=== PATIENT | female | born 1990 | race Caucasian/White ===

== ENCOUNTER 2017-01-15 04:05 | Inpatient (IN) | payer BC ==
[2017-01-15] MEDS ORDERED: Sodium Chloride 0.9% 2.5 ML Syringe FLUSH PRN ×3 (04:08→19:02)
[2017-01-15] MEDS ORDERED: Sodium Chloride 0.9% 10 ML Syringe FLUSH PRN ×3 (04:08→19:02)
[2017-01-15] MEDS ORDERED: Promethazine 25 MG/ML SDV IM ONE (04:12)
[2017-01-15] MEDS ORDERED: Butorphanol 1 MG/ML SDV IVPUSH ONE (04:13)
[2017-01-15] MEDS ORDERED: Water For Irrigation,Sterile 1,000 ML Container IRR PRN (04:32)
[2017-01-15] MEDS ORDERED: Butorphanol 1 MG/ML SDV IVPUSH PRN (04:32)
[2017-01-15] MEDS ORDERED: Lidocaine 1% 50 ML MDV INJECT PRN (04:32)
[2017-01-15] MEDS ORDERED: Nalbuphine 10 MG/1 ML Vial IVPUSH PRN ×2 (04:32→20:03)
[2017-01-15] MEDS ORDERED: Methylergonovine 0.2 MG/1 ML Amp IM PRN (04:32)
[2017-01-15] MEDS ORDERED: Misoprostol 200 MCG Tab PO PRN (04:32)
[2017-01-15] MEDS ORDERED: Carboprost Tromethamine 250 MCG/1 ML Amp IM PRN (04:32)
[2017-01-15] MEDS ORDERED: Ampicillin 2 GM in Sodium Chloride 0.9% 100 ML IV ONE (04:37)
[2017-01-15] MEDS: Lactated Ringers 1,000 ML IV SCH ×3 (04:38→06:36)
[2017-01-15] MEDS ORDERED: Lactated Ringers 1,000 ML IV SCH ×3 (04:45→20:00)
[2017-01-15] MEDS ORDERED: Oxytocin/Lactated Ringers 30 UNIT/500 ML BAG IV SCH (04:45)
--- NOTE | 2017-01-15 05:17 | PCM.PREANE ---
Preanesthetic Assessment - Anesthesia/Transfusion/Family Hx Anesthesia History: No Prior Anesthesia - Review of Systems General: No Symptoms Pulmonary: No Symptoms Cardiovascular: No Symptoms Gastrointestinal: No Symptoms Neurological: No Symptoms Other: Reports: None - Physical Assessment Height: 5 ft Weight: 72.575 kg ASA Class: 2 Mental Status: Alert & Oriented x3 Airway Class: Mallampati = 2 Dentition: Reports: Normal Dentition Thyro-Mental Finger Breadths: 3 Mouth Opening Finger Breadths: 3 ROM/Head Extension: Full Lungs: Clear to Auscultation, Normal Respiratory Effort Cardiovascular: Regular Rate, Regular Rhythm - Lab Values: Laboratory Last Values WBC 12.43 K/uL (4.0-11.0) H 01/15/17 04:35 RBC 4.29 M/uL (4.30-5.90) L 01/15/17 04:35 Hgb 14.3 g/dL (12.0-16.0) 01/15/17 04:35 Hct 40.4 % (36.0-46.0) 01/15/17 04:35 MCV 94.2 fL (80.0-98.0) 01/15/17 04:35 MCH 33.3 pg (27.0-32.0) H 01/15/17 04:35 MCHC 35.4 g/dL (31.0-37.0) 01/15/17 04:35 RDW Std Deviation 45.3 fl (28.0-62.0) 01/15/17 04:35 RDW Coeff of Jude 13 % (11.0-15.0) 01/15/17 04:35 Plt Count 197 K/uL (150-400) 01/15/17 04:35 MPV 11.00 fL (7.40-12.00) 01/15/17 04:35 Nucleated RBC % 0.0 /100WBC 01/15/17 04:35 Nucleated RBCs # 0 K/uL 01/15/17 04:35 - Allergies Allergies/Adverse Reactions: Allergies Allergy/AdvReac Type Severity Reaction Status Date / Time shellfish derived Allergy Itching Verified 01/14/17 20:39 - Acknowledgements Anesthesia Type Planned: Epidural Pt an Appropriate Candidate for the Planned Anesthesia: Yes Alternatives and Risks of Anesthesia Discussed w Pt/Guardian: Yes Pt/Guardian Understands and Agrees with Anesthesia Plan: Yes PreAnesthesia Questionnaire HEENT History: Reports: None Cardiovascular History: Reports: None Respiratory History: Reports: None Gastrointestinal History: Reports: GERD Genitourinary History: Reports: None CULINARY DIRECTOR History: Reports: : 2 Para: 1 LMP (Approximate): Musculoskeletal History: Reports: None Neurological History: Reports: None Psychiatric History: Reports: Anxiety, Depression Endocrine/Metabolic History: Reports: Obesity/BMI 30+ Hematologic History: Reports: None Immunologic History: Reports: None Oncologic (Cancer) History: Reports: None Dermatologic History: Reports: None - Infectious Disease History Infectious Disease History: Reports: None - Past Surgical History HEENT Surgical History: Reports: Other (See Below) Other HEENT Surgeries/Procedures: WISDOM TEETH - Past Imaging History Past Imaging History: Reports: None - CURRENT (IN HOUSE) MEDS Current Meds: Current Medications Butorphanol Tartrate (Stadol) 1 mg IVPUSH Q1H PRN PRN Reason: Pain Carboprost Tromethamine (Hemabate Ds) 250 mcg IM ASDIRECTED PRN PRN Reason: Post Hemorrhage Lactated Ringer's (Ringers, Lactated) 1,000 mls @ 125 mls/hr IV ASDIRECTED [facility] Last Admin: 01/15/17 04:38 Dose: 125 mls/hr Lactated Ringer's (Ringers, Lactated) 1,000 mls @ 150 mls/hr IV ASDIRECTED [facility] Oxytocin/Lactated Ringer's (Pitocin In Lr 30 Units/500 Ml) 30 unit in 500 mls @ 999 mls/hr IV TITRATE [facility] Stop: 01/15/17 05:16 Ampicillin Sodium 1 gm/ Sodium (Chloride) 50 mls @ 100 mls/hr IV Q4HR [facility] Lidocaine HCl (Xylocaine 1%) 50 ml INJECT .ONCE PRN PRN Reason: Laceration repair Methylergonovine Maleate (Methergine) 0.2 mg IM ASDIRECTED PRN PRN Reason: Post Hemorrhage Misoprostol (Cytotec) 200 mcg PO .ONCE PRN PRN Reason: Post Hemorrhage Nalbuphine HCl (Nubain) 10 mg IVPUSH Q1H PRN PRN Reason: Pain (severe 7-10) Stop: 01/15/17 06:33 Sodium Chloride (Saline Flush) 10 ml FLUSH ASDIRECTED PRN PRN Reason: Keep Vein Open Sodium Chloride (Saline Flush) 2.5 ml FLUSH ASDIRECTED PRN PRN Reason: Keep Vein Open Sodium Chloride (Saline Flush) 10 ml FLUSH ASDIRECTED PRN PRN Reason: Keep Vein Open Sodium Chloride (Saline Flush) 2.5 ml FLUSH ASDIRECTED PRN PRN Reason: Keep Vein Open Sterile Water (Sterile Water For Irrigation) 1,000 ml IRR ASDIRECTED PRN PRN Reason: delivery Discontinued Medications Butorphanol Tartrate (Stadol) 1 mg IVPUSH ONETIME ONE Stop: 01/15/17 04:14 Last Admin: 01/15/17 04:47 Dose: 1 mg Ampicillin Sodium 2 gm/ Sodium (Chloride) 100 mls @ 200 mls/hr IV ONETIME ONE Stop: 01/15/17 05:06 Last Admin: 01/15/17 05:11 Dose: 200 mls/hr Promethazine HCl (Phenergan) 12.5 mg IM ONETIME ONE Stop: 01/15/17 04:13
[2017-01-15] MEDS ORDERED: fentaNYL 100 MCG/2 ML SDV ONE ×2 (05:19→18:53)
[2017-01-15] MEDS ORDERED: Ropivacaine HCl/PF 100 ML ONE ×2 (05:19→15:38)
[2017-01-15] MEDS ORDERED: ePHEDrine 50 MG/ML SDV ONE (05:56)
[2017-01-15] MEDS: Ampicillin 1 GM in Sodium Chloride 0.9% 50 ML IV SCH ×3 (09:05→17:02)
[2017-01-15] MEDS ORDERED: Bupivacaine 0.25% 10 ML SDV ONE ×2 (16:59→18:36)
[2017-01-15] MEDS ORDERED: Acetaminophen 500 MG Tab PO ONE (18:24)
[2017-01-15] MEDS ORDERED: Bupivacaine 0.5% 10 ML SDV ONE (18:53)
[2017-01-15] MEDS ORDERED: Midazolam 1 MG/ML 2 ML SDV ONE (19:13)
[2017-01-15] MEDS ORDERED: Propofol 200 MG/20 ML SDV ONE (19:13)
[2017-01-15] MEDS ORDERED: Citric Acid/Sodium Citrate Solution 30 ML Cup PO SCH (19:15)
[2017-01-15] MEDS ORDERED: Oxytocin 10 Units/1 ML SDV ONE (19:20)
[2017-01-15] MEDS ORDERED: Morphine PF 10 MG/10 ML SDV ONE (19:31)
[2017-01-15] MEDS ORDERED: Octyl 2-Cyanoacrylate 1 Tube ONE (19:48)
[2017-01-15] MEDS ORDERED: diphenhydrAMINE 50 MG/ML SDV IVPUSH PRN (19:54)
[2017-01-15] MEDS ORDERED: Bisacodyl 10 MG Supp RECTAL PRN (19:54)
[2017-01-15] MEDS ORDERED: Acetaminophen/oxyCODONE 325-5 MG Tab PO PRN ×2 (19:54→20:02)
[2017-01-15] MEDS ORDERED: Lanolin 100% Cream 7 GM Tube TOP PRN (19:54)
[2017-01-15] MEDS ORDERED: Ondansetron 4 MG/2 ML SDV IV PRN (19:54)
[2017-01-15] MEDS ORDERED: Ibuprofen 800 MG Tab PO PRN (19:54)
[2017-01-15] MEDS ORDERED: Naloxone 0.4 MG/ML Syringe IVPUSH PRN (20:03)
--- NOTE | 2017-01-15 20:03 | PCM.OPNOTE ---
- General Post-Op/Procedure Note Date of Surgery/Procedure: 01/15/17 Operative Procedure(s): Primary LTCS Findings: term female APGARs 8, 9 weigh 3410 gm. Intact placenta with 3 V cord. Normal appearing pelvis. Pre Op Diagnosis: 40 week IUP. Arrest of descent Post-Op Diagnosis: Same Anesthesia Technique: Epidural Primary Surgeon: Anuradha Romero Fluid Replacement, Intraop: 1,000 EBL in mLs: 500 Complications: none known Condition: Good Free Text/Narrative:: Dictation [id number]
--- NOTE | 2017-01-15 20:32 | PCM.POSTAN ---
POST ANESTHESIA ASSESSMENT - MENTAL STATUS Mental Status: Alert, Oriented - RESPIRATORY Respiratory Status: Respiratory Rate WNL, Airway Patent, O2 Saturation Stable - CARDIOVASCULAR CV Status: Pulse Rate WNL, Blood Pressure Stable, Other (alternates between NSR and bigeminy with no symptoms) - GASTROINTESTINAL GI Status: No Symptoms - PAIN Pain Score: 3 ("tolerable") - POST OP HYDRATION Hydration Status: Adequate & Stable - OBSERVATIONS Free Text/Narrative:: Pt stable. She does jump in and out of bigeminy on her EKG, but asymptomatic and returns to NSR. VSS. No nausea and pt states that her pain is tolerable at this time.
[2017-01-15] MEDS ORDERED: Ketorolac 30 MG/ML SDV ONE (20:58)
[2017-01-15] MEDS: Ketorolac 30 MG/ML SDV IVPUSH SCH (21:03)
[2017-01-15] MEDS: Docusate Sodium 100 MG Cap PO SCH (21:03)
--- NOTE | 2017-01-15 23:38 | OR ---
SURGEON: Anuradha Romero M.D. DATE OF PROCEDURE: 01/15/2017 PREOPERATIVE DIAGNOSES: 1. 40 weeks intrauterine . 2. Arrest of descent. POSTOPERATIVE DIAGNOSES: 1. 40 weeks intrauterine . 2. Arrest of descent. PROCEDURE: Primary low transverse section. ESTIMATED BLOOD LOSS: 500 mL. ANESTHESIA: Epidural. FLUIDS: 1000 mL of crystalloid. COMPLICATIONS: None. FINDINGS: Term female, score 8 at 1 minute, 9 at 5 minute. Weight of 3410 g. Intact placenta, three vessel cord, normal appearing pelvis. DISPOSITION: Infant to nursery, mom to PACU, stable. INDICATIONS: Kym is a 26-year-old, primigravida at 40 weeks' gestational age, presented in active labor. She was admitted and routine labs were drawn. IV hydration was initiated. She is group B beta strep positive, therefore, underwent ampicillin prophylaxis, after receiving two doses of this had amniotomy, clear fluid was returned. She progressed to complete and began pushing efforts once at a +1 station. With pushing efforts, she was able to push to a +2 station with approximately 3 hours of pushing, but thereafter was not able to make further progress. I offered operative vaginal delivery, the patient adamantly declines this and would prefer to proceed with . Therefore, risks of the procedure have been discussed with her and proper consent obtained. DESCRIPTION OF PROCEDURE: The patient was taken to the operating room where she underwent re-dosing of her epidural, was then prepped and draped in usual sterile fashion. SCDs lower extremities. Angulo had already been placed to gravity. Received Ancef prophylactically. She was prepped and draped in usual sterile fashion. Time-out was performed. Anesthesia was found to be adequate. Nurse had been placed to the side of the patient in order to allow it for a vaginal hand during delivery of the head. Pfannenstiel skin incision was now created, carried down to the level of the rectus fascia, which was incised in midline, lateralized on either side sharply and bluntly. The superior aspect of the fascia was tented upward, dissected sharply and bluntly away from underlying muscle. Inferior aspect of the fascia was also dissected. Rectus muscle was in midline and peritoneum was entered. Inferior aspect of the peritoneum was entered. Rectus muscles and peritoneum were then lateralized bluntly. Self-retaining retractor was now gently placed. Uterovesical reflection was visualized. Bladder flap was created sharply and bluntly. The bladder was mobilized away from lower uterine segment. Low transverse hysterotomy was now performed. Uterine cavity was entered with blunt end of the scalpel. Hysterotomy was now lateralized bluntly. The infant's head was flexed and delivered with the help of the nurse using vaginal hand. Once the head was delivered from the pelvis, fundal pressure was applied and head was delivered followed by anterior shoulder, posterior shoulder, and remaining body without difficulty. The 's oropharynx and nares bulb suctioned. Cord clamped x2 and cut. Infant was handed off to attending staff, Dr. Galvin. Cord arterial, cord venous, and cord blood sampling were obtained. The placenta was now delivered. Uterine cavity was cleared of all clot and debris. Hysterotomy was repaired using 0 Vicryl in a continuous running locked fashion, followed by a re-imbricating layer. The posterior aspect of the uterus inspected, no defects hematoma found to be forming. The region was well irrigated and suction dried. Colonic gutters were cleared of all clot and debris, well irrigated and suction dried. The hysterotomy was once again inspected, 2 areas of serosal oozing were cauterized, thereafter, hemostasis was evident. Self-retaining retractor was now removed. Bladder blade was placed. Hysterotomy was inspected and found to be hemostatic. The rectus muscles were now reapproximated using 0 Vicryl with inverted mattress suture technique. Anterior aspect of the muscle, posterior aspect of the fascia closely inspected. Any areas of oozing were cauterized. The rectus fascia was reapproximated using 0 Vicryl in continuous running fashion beginning laterally on either side meeting the midline in continuous fashion. Subcutaneous tissue was well irrigated and suction dried. Any area of oozing was cauterized. The skin edges were reapproximated using 3-0 Vicryl in a Eliseo needle in subcuticular fashion followed by Dermabond. Sponge, instrument, needle counts were correct x2. The uterus remained firm. Hemostasis evident. The patient will go to PACU in stable condition. to nursery. TAMMY / BRENT /[id number]
--- NOTE | 2017-01-16 02:48 | PCM48HPAN ---
Post Anesthesia Note - EVALUATION WITHIN 48HRS OF ANESTHETIC Vital Signs in Normal Range: Yes Patient Participated in Evaluation: Yes Respiratory Function Stable: Yes Airway Patent: Yes Cardiovascular Function Stable: Yes Hydration Status Stable: Yes Pain Control Satisfactory: Yes Nausea and Vomiting Control Satisfactory: Yes Mental Status Recovered: Yes
[2017-01-16] MEDS: Ketorolac 30 MG/ML SDV IVPUSH SCH ×4 (04:51→22:17)
[2017-01-16] MEDS: Docusate Sodium 100 MG Cap PO SCH ×2 (09:30→20:11)
[2017-01-16] MEDS: Lactated Ringers 1,000 ML IV SCH (09:30)
--- NOTE | 2017-01-16 10:55 | PCM.PNPP ---
- General Info Date of Service: 01/16/17 Admission Dx/Problem (Free Text): Term , post-op Subjective Update: Patient doing well. Pain controlled. Will be up to walk this morning. Eating well. . Functional Status: Reports: Pain Controlled - Review of Systems General: Reports: No Symptoms HEENT: Reports: No Symptoms Pulmonary: Reports: No Symptoms Cardiovascular: Reports: No Symptoms Gastrointestinal: Reports: No Symptoms Genitourinary: Reports: No Symptoms Musculoskeletal: Reports: No Symptoms Skin: Reports: No Symptoms Neurological: Reports: No Symptoms Psychiatric: Reports: No Symptoms - General Info Date of Service: 01/16/17 - Patient Data Vital Signs - Most Recent: Last Vital Signs Temp 36.8 C 01/16/17 08:00 Pulse 86 01/16/17 08:00 Resp 16 01/16/17 10:00 BP 107/64 01/16/17 08:00 Pulse Ox 95 01/16/17 10:00 Weight - Most Recent: 72.575 kg I&O - Last 24 Hours: Intake & Output 01/15/17 01/16/17 01/16/17 22:59 06:59 14:59 Intake Total 3000 Output Total 210 Balance 2790 Lab Results - Last 24 Hours: Laboratory Results - last 24 hr 01/16/17 Range/Units 05:51 Hgb 10.6 L (12.0-16.0) g/dL Hct 31.1 L (36.0-46.0) % Med Orders - Current: Current Medications Bisacodyl (Dulcolax) 10 mg RECTAL .ONCE PRN PRN Reason: Constipation Carboprost Tromethamine (Hemabate Ds) 250 mcg IM ASDIRECTED PRN PRN Reason: Post Hemorrhage Citric Acid/Sodium Citrate (Bicitra Solution) 30 ml PO .ONCE [facility] Diphenhydramine HCl (Benadryl) 25 mg IVPUSH Q6H PRN PRN Reason: Itching or Nausea Docusate Sodium (Colace) 100 mg PO BID [facility] [place] Last Admin: 01/16/17 09:30 Dose: 100 mg Emollient Ointment (Lansinoh Hpa) 0 gm TOP ASDIRECTED PRN PRN Reason: Sore Nipples Lactated Ringer's (Ringers, Lactated) 1,000 mls @ 125 mls/hr IV ASDIRECTED [facility] Last Admin: 01/16/17 09:30 Dose: 125 mls/hr Lactated Ringer's (Ringers, Lactated) 1,000 mls @ 150 mls/hr IV ASDIRECTED [facility] [place] Last Admin: 01/15/17 13:10 Dose: 150 mls/hr Lactated Ringer's (Ringers, Lactated) 1,000 mls @ 500 mls/hr IV .BOLUS [facility] [place] Lactated Ringer's (Ringers, Lactated) 1,000 mls @ 125 mls/hr IV ASDIRECTED [facility] [place] Ibuprofen (Motrin) 800 mg PO Q8H PRN PRN Reason: mild pain or fever Ketorolac Tromethamine (Toradol) 30 mg IVPUSH Q6H [facility] [place] Stop: 01/16/17 21:01 Last Admin: 01/16/17 10:38 Dose: 30 mg Methylergonovine Maleate (Methergine) 0.2 mg IM ASDIRECTED PRN PRN Reason: Post Hemorrhage Nalbuphine HCl (Nubain) 2.5 mg IVPUSH Q3H PRN PRN Reason: Pruritis Stop: 01/16/17 20:04 Naloxone HCl (Narcan) 0.1 mg IVPUSH ONETIME PRN PRN Reason: RR<6 WITH STIMULATION Stop: 01/16/17 20:04 Ondansetron HCl (Zofran) 4 mg IV Q4H PRN PRN Reason: Nausea/Vomiting Oxycodone/Acetaminophen (Percocet 325-5 Mg) 1 tab PO Q4H PRN PRN Reason: Pain (moderate 4-6) Oxycodone/Acetaminophen (Percocet 325-5 Mg) 2 tab PO Q4H PRN PRN Reason: Pain (moderate 4-6) Oxycodone/Acetaminophen (Percocet 325-5 Mg) 1 tab PO .Q4HRS PRN PRN Reason: Breakthrough Pain Stop: 01/16/17 20:00 Sodium Chloride (Saline Flush) 2.5 ml FLUSH ASDIRECTED PRN PRN Reason: Keep Vein Open Sodium Chloride (Saline Flush) 2.5 ml FLUSH ASDIRECTED PRN PRN Reason: Keep Vein Open Sodium Chloride (Saline Flush) 10 ml FLUSH ASDIRECTED PRN PRN Reason: Keep Vein Open Sodium Chloride (Saline Flush) 2.5 ml FLUSH ASDIRECTED PRN PRN Reason: Keep Vein Open Discontinued Medications Acetaminophen (Tylenol Extra Strength) 1,000 mg PO ONETIME ONE Stop: 01/15/17 18:25 Bupivacaine HCl (Sensorcaine-Mpf 0.25%) Confirm Administered Dose 10 ml .ROUTE .STK-MED ONE Stop: 01/15/17 17:00 Bupivacaine HCl (Sensorcaine-Mpf 0.25%) Confirm Administered Dose 10 ml .ROUTE .STK-MED ONE Stop: 01/15/17 18:37 Bupivacaine HCl (Sensorcaine-Mpf 0.5%) Confirm Administered Dose 20 ml .ROUTE .STK-MED ONE Stop: 01/15/17 18:54 Butorphanol Tartrate (Stadol) 1 mg IVPUSH ONETIME ONE Stop: 01/15/17 04:14 Last Admin: 01/15/17 04:47 Dose: 1 mg Butorphanol Tartrate (Stadol) 1 mg IVPUSH Q1H PRN PRN Reason: Pain Ephedrine Sulfate (Ephedrine Sulfate) Confirm Administered Dose 50 mg .ROUTE .STK-MED ONE Stop: 01/15/17 05:57 Fentanyl (Sublimaze) Confirm Administered Dose 100 mcg .ROUTE .STK-MED ONE Stop: 01/15/17 05:20 Fentanyl (Sublimaze) Confirm Administered Dose 100 mcg .ROUTE .STK-MED ONE Stop: 01/15/17 18:54 Oxytocin/Lactated Ringer's (Pitocin In Lr 30 Units/500 Ml) 30 unit in 500 mls @ 999 mls/hr IV TITRATE [facility] [place] Stop: 01/15/17 05:16 Ampicillin Sodium 2 gm/ Sodium (Chloride) 100 mls @ 200 mls/hr IV ONETIME ONE Stop: 01/15/17 05:06 Last Admin: 01/15/17 05:11 Dose: 200 mls/hr Ampicillin Sodium 1 gm/ Sodium (Chloride) 50 mls @ 100 mls/hr IV Q4HR [facility] [place] Last Admin: 01/15/17 17:02 Dose: 100 mls/hr Ropivacaine (Naropin 0.2%) Confirm Administered Dose 100 mls @ as directed .ROUTE .STK-MED ONE Stop: 01/15/17 05:20 Ropivacaine (Naropin 0.2%) Confirm Administered Dose 100 mls @ as directed .ROUTE .STK-MED ONE Stop: 01/15/17 15:39 Cefazolin Sodium/Dextrose (Ancef) Confirm Administered Dose 50 mls @ as directed .ROUTE .STK-MED ONE Stop: 01/15/17 18:59 Ibuprofen (Motrin) 800 mg PO Q8H PRN PRN Reason: mild pain or fever Ketorolac Tromethamine (Toradol) Confirm Administered Dose 30 mg .ROUTE .STK- MED ONE Stop: 01/15/17 20:59 Lidocaine HCl (Xylocaine 1%) 50 ml INJECT .ONCE PRN PRN Reason: Laceration repair Midazolam HCl (Versed 1 Mg/Ml) Confirm Administered Dose 2 mg .ROUTE .STK-MED ONE Stop: 01/15/17 19:14 Misoprostol (Cytotec) 200 mcg PO .ONCE PRN PRN Reason: Post Hemorrhage Morphine Sulfate (Duramorph Pf) Confirm Administered Dose 10 mg .ROUTE .STK-MED ONE Stop: 01/15/17 19:32 Nalbuphine HCl (Nubain) 10 mg IVPUSH Q1H PRN PRN Reason: Pain (severe 7-10) Stop: 01/15/17 06:33 Octyl Cyanoacrylate (Dermabond Advance) Confirm Administered Dose 1 applic .ROUTE .STK-MED ONE Stop: 01/15/17 19:49 Oxytocin (Pitocin) Confirm Administered Dose 30 unit .ROUTE .STK-MED ONE Stop: 01/15/17 19:21 Promethazine HCl (Phenergan) 12.5 mg IM ONETIME ONE Stop: 01/15/17 04:13 Propofol (Diprivan 20 Ml) Confirm Administered Dose 200 mg .ROUTE .STK-MED ONE Stop: 01/15/17 19:14 Sodium Chloride (Saline Flush) 10 ml FLUSH ASDIRECTED PRN PRN Reason: Keep Vein Open Sodium Chloride (Saline Flush) 10 ml FLUSH ASDIRECTED PRN PRN Reason: Keep Vein Open Sterile Water (Sterile Water For Irrigation) 1,000 ml IRR ASDIRECTED PRN PRN Reason: delivery - Interaction Infant Disposition, : in Room with Family Infant Interaction: Holding Infant Feeding: Breastfed Infant; Nursed Well Support Person: - Recovery Exam Fundal Tone: Firm Fundal Level: At Umbilicus Fundal Placement: Midline Lochia Amount: Scant Lochia Color: Rubra/Red Perineum Description: Edematous Urinary Elimination: Indwelling Catheter - Exam General: Alert, Oriented Lungs: Clear to Auscultation, Normal Respiratory Effort Cardiovascular: Regular Rate, Regular Rhythm GI/Abdominal Exam: Normal Bowel Sounds, Soft, Non-Tender (Appropriately tender) Extremities: Normal Inspection, Normal Range of Motion, Non-Tender, No Pedal Edema, Normal Capillary Refill Skin: Warm, Dry, Intact Wound/Incisions: Healing Well Neurological: No New Focal Deficit Psy/Mental Status: Alert, Normal Affect, Normal Mood - Problem List & Annotations (1) Arrest of descent, delivered, current hospitalization SNOMED Code(s): 90466202 Code(s): O62.1 - SECONDARY UTERINE INERTIA Status: Acute Current Visit: Yes (2) delivery delivered SNOMED Code(s): 748749064 Code(s): O82 - ENCOUNTER FOR DELIVERY WITHOUT INDICATION Status: Acute Current Visit: Yes - Problem List Review Problem List Initiated/Reviewed/Updated: Yes - Assessment Assessment:: POD#1 after primary low transverse . Stable, tolerating diet, pain well controlled. Working on . Will be up to walk shortly. - Plan Plan:: Will work on walking. Start PO pain medications this evening. Continue care.
[2017-01-17] MEDS ORDERED: Ibuprofen 800 MG Tab PO PRN (03:00)
[2017-01-17] MEDS: Acetaminophen/oxyCODONE 325-5 MG Tab PO PRN ×2 (03:55→08:31)
[2017-01-17] MEDS: Docusate Sodium 100 MG Cap PO SCH (08:35)
[2017-01-17 10:20] VITALS: BP 117/72
--- NOTE | 2017-01-17 10:57 | PCM.PNPP ---
- General Info Date of Service: 01/17/17 Functional Status: Reports: Pain Controlled, Tolerating Diet, Ambulating, Urinating - Review of Systems General: Reports: No Symptoms HEENT: Reports: No Symptoms Pulmonary: Reports: No Symptoms Cardiovascular: Reports: No Symptoms Gastrointestinal: Reports: No Symptoms Genitourinary: Reports: No Symptoms Musculoskeletal: Reports: No Symptoms Skin: Reports: No Symptoms Neurological: Reports: No Symptoms Psychiatric: Reports: No Symptoms - General Info Date of Service: 01/17/17 - Patient Data Vital Signs - Most Recent: Last Vital Signs Temp 37.0 C 01/17/17 10:08 Pulse 95 01/17/17 10:08 Resp 16 01/17/17 10:08 BP 117/72 01/17/17 10:08 Pulse Ox 97 01/17/17 10:08 Weight - Most Recent: 72.575 kg I&O - Last 24 Hours: Intake & Output 01/16/17 01/17/17 01/17/17 22:59 06:59 14:59 Output Total 2100 Balance -2100 Med Orders - Current: Current Medications Bisacodyl (Dulcolax) 10 mg RECTAL .ONCE PRN PRN Reason: Constipation Carboprost Tromethamine (Hemabate Ds) 250 mcg IM ASDIRECTED PRN PRN Reason: Post Hemorrhage Citric Acid/Sodium Citrate (Bicitra Solution) 30 ml PO .ONCE CHAY Diphenhydramine HCl (Benadryl) 25 mg IVPUSH Q6H PRN PRN Reason: Itching or Nausea Docusate Sodium (Colace) 100 mg PO BID [facility] Last Admin: 01/17/17 08:35 Dose: 100 mg Emollient Ointment (Lansinoh Hpa) 0 gm TOP ASDIRECTED PRN PRN Reason: Sore Nipples Lactated Ringer's (Ringers, Lactated) 1,000 mls @ 125 mls/hr IV ASDIRECTED [facility] Last Admin: 01/16/17 09:30 Dose: 125 mls/hr Lactated Ringer's (Ringers, Lactated) 1,000 mls @ 150 mls/hr IV ASDIRECTED [facility] Last Admin: 01/15/17 13:10 Dose: 150 mls/hr Lactated Ringer's (Ringers, Lactated) 1,000 mls @ 500 mls/hr IV .BOLUS CHAY Lactated Ringer's (Ringers, Lactated) 1,000 mls @ 125 mls/hr IV ASDIRECTED CHAY Ibuprofen (Motrin) 800 mg PO Q8H PRN PRN Reason: mild pain or fever Methylergonovine Maleate (Methergine) 0.2 mg IM ASDIRECTED PRN PRN Reason: Post Hemorrhage Ondansetron HCl (Zofran) 4 mg IV Q4H PRN PRN Reason: Nausea/Vomiting Oxycodone/Acetaminophen (Percocet 325-5 Mg) 1 tab PO Q4H PRN PRN Reason: Pain (moderate 4-6) Oxycodone/Acetaminophen (Percocet 325-5 Mg) 2 tab PO Q4H PRN PRN Reason: Pain (moderate 4-6) Last Admin: 01/17/17 08:31 Dose: 2 tab Sodium Chloride (Saline Flush) 2.5 ml FLUSH ASDIRECTED PRN PRN Reason: Keep Vein Open Sodium Chloride (Saline Flush) 2.5 ml FLUSH ASDIRECTED PRN PRN Reason: Keep Vein Open Sodium Chloride (Saline Flush) 10 ml FLUSH ASDIRECTED PRN PRN Reason: Keep Vein Open Sodium Chloride (Saline Flush) 2.5 ml FLUSH ASDIRECTED PRN PRN Reason: Keep Vein Open Discontinued Medications Acetaminophen (Tylenol Extra Strength) 1,000 mg PO ONETIME ONE Stop: 01/15/17 18:25 Bupivacaine HCl (Sensorcaine-Mpf 0.25%) Confirm Administered Dose 10 ml .ROUTE .STK-MED ONE Stop: 01/15/17 17:00 Bupivacaine HCl (Sensorcaine-Mpf 0.25%) Confirm Administered Dose 10 ml .ROUTE .STK-MED ONE Stop: 01/15/17 18:37 Bupivacaine HCl (Sensorcaine-Mpf 0.5%) Confirm Administered Dose 20 ml .ROUTE .STK-MED ONE Stop: 01/15/17 18:54 Butorphanol Tartrate (Stadol) 1 mg IVPUSH ONETIME ONE Stop: 01/15/17 04:14 Last Admin: 01/15/17 04:47 Dose: 1 mg Butorphanol Tartrate (Stadol) 1 mg IVPUSH Q1H PRN PRN Reason: Pain Ephedrine Sulfate (Ephedrine Sulfate) Confirm Administered Dose 50 mg .ROUTE .STK-MED ONE Stop: 01/15/17 05:57 Fentanyl (Sublimaze) Confirm Administered Dose 100 mcg .ROUTE .STK-MED ONE Stop: 01/15/17 05:20 Fentanyl (Sublimaze) Confirm Administered Dose 100 mcg .ROUTE .STK-MED ONE Stop: 01/15/17 18:54 Oxytocin/Lactated Ringer's (Pitocin In Lr 30 Units/500 Ml) 30 unit in 500 mls @ 999 mls/hr IV TITRATE [facility] Stop: 01/15/17 05:16 Ampicillin Sodium 2 gm/ Sodium (Chloride) 100 mls @ 200 mls/hr IV ONETIME ONE Stop: 01/15/17 05:06 Last Admin: 01/15/17 05:11 Dose: 200 mls/hr Ampicillin Sodium 1 gm/ Sodium (Chloride) 50 mls @ 100 mls/hr IV Q4HR [facility] Last Admin: 01/15/17 17:02 Dose: 100 mls/hr Ropivacaine (Naropin 0.2%) Confirm Administered Dose 100 mls @ as directed .ROUTE .STK-MED ONE Stop: 01/15/17 05:20 Ropivacaine (Naropin 0.2%) Confirm Administered Dose 100 mls @ as directed .ROUTE .STK-MED ONE Stop: 01/15/17 15:39 Cefazolin Sodium/Dextrose (Ancef) Confirm Administered Dose 50 mls @ as directed .ROUTE .STK-MED ONE Stop: 01/15/17 18:59 Ibuprofen (Motrin) 800 mg PO Q8H PRN PRN Reason: mild pain or fever Ketorolac Tromethamine (Toradol) 30 mg IVPUSH Q6H [facility] Stop: 01/16/17 21:01 Last Admin: 01/16/17 22:17 Dose: 30 mg Ketorolac Tromethamine (Toradol) Confirm Administered Dose 30 mg .ROUTE .STK- MED ONE Stop: 01/15/17 20:59 Lidocaine HCl (Xylocaine 1%) 50 ml INJECT .ONCE PRN PRN Reason: Laceration repair Midazolam HCl (Versed 1 Mg/Ml) Confirm Administered Dose 2 mg .ROUTE .STK-MED ONE Stop: 01/15/17 19:14 Misoprostol (Cytotec) 200 mcg PO .ONCE PRN PRN Reason: Post Hemorrhage Morphine Sulfate (Duramorph Pf) Confirm Administered Dose 10 mg .ROUTE .STK-MED ONE Stop: 01/15/17 19:32 Nalbuphine HCl (Nubain) 10 mg IVPUSH Q1H PRN PRN Reason: Pain (severe 7-10) Stop: 01/15/17 06:33 Nalbuphine HCl (Nubain) 2.5 mg IVPUSH Q3H PRN PRN Reason: Pruritis Stop: 01/16/17 20:04 Naloxone HCl (Narcan) 0.1 mg IVPUSH ONETIME PRN PRN Reason: RR<6 WITH STIMULATION Stop: 01/16/17 20:04 Octyl Cyanoacrylate (Dermabond Advance) Confirm Administered Dose 1 applic .ROUTE .STK-MED ONE Stop: 01/15/17 19:49 Oxycodone/Acetaminophen (Percocet 325-5 Mg) 1 tab PO .Q4HRS PRN PRN Reason: Breakthrough Pain Stop: 01/16/17 20:00 Oxytocin (Pitocin) Confirm Administered Dose 30 unit .ROUTE .STK-MED ONE Stop: 01/15/17 19:21 Promethazine HCl (Phenergan) 12.5 mg IM ONETIME ONE Stop: 01/15/17 04:13 Propofol (Diprivan 20 Ml) Confirm Administered Dose 200 mg .ROUTE .STK-MED ONE Stop: 01/15/17 19:14 Sodium Chloride (Saline Flush) 10 ml FLUSH ASDIRECTED PRN PRN Reason: Keep Vein Open Sodium Chloride (Saline Flush) 10 ml FLUSH ASDIRECTED PRN PRN Reason: Keep Vein Open Sterile Water (Sterile Water For Irrigation) 1,000 ml IRR ASDIRECTED PRN PRN Reason: delivery - Infant Interaction Disposition, : [place] in Room with Family Infant Interaction: Holding Infant Infant Feeding: Breastfed ; Nursed Well Support Person: - Recovery Exam Fundal Tone: Firm Fundal Level: At Umbilicus Fundal Placement: Midline Lochia Amount: Small Lochia Color: Rubra/Red Perineum Description: Intact, Minimal Bruising/Swelling Episiotomy/Laceration: None Bladder Status: Voiding Urinary Elimination: Voided - Exam General: Alert, Oriented HEENT: Pupils Equal Neck: Supple Lungs: Clear to Auscultation, Normal Respiratory Effort Cardiovascular: Regular Rate, Regular Rhythm GI/Abdominal Exam: Normal Bowel Sounds, Soft, Non-Tender, No Organomegaly Extremities: Normal Inspection, Normal Range of Motion, Non-Tender. No: No Pedal Edema (1+ equal bilaterally.) Skin: Warm, Dry, Intact Neurological: No New Focal Deficit Psy/Mental Status: Alert, Normal Affect, Normal Mood - Problem List & Annotations (1) Arrest of descent, delivered, current hospitalization SNOMED Code(s): 58650671 Code(s): O62.1 - SECONDARY UTERINE INERTIA Status: Acute Current Visit: Yes (2) delivery delivered SNOMED Code(s): 890837262 Code(s): O82 - ENCOUNTER FOR DELIVERY WITHOUT INDICATION Status: Acute Current Visit: Yes - Problem List Review Problem List Initiated/Reviewed/Updated: Yes - Assessment Assessment:: POD#2 after primary low transverse . Stable, tolerating diet, pain well controlled. Ambulating without difficulty, is going well. Would like to go home today, has mom and partner at home for help. - Plan Plan:: Dismiss to home today, discharge instructions reviewed. Continue vitamins while .
== END 2017-01-17 15:30 | disposition home or self-care (01) | DRG 540 ==
LOC: MW.OBCHECK 04:05 → MW.OB 04:07 → MW.OBCHECK 04:32 → MW.OB 04:32 → OBSVTOIN 18:14 → INTOOBSV 18:14 → OBSVTOIN 19:24 → MW.OB 22:15
PROVIDERS: ADMIT Obstetrics & Gynecology; ATTEND Obstetrics & Gynecology
PROC: 10D00Z1 Extraction of Products of Conception, Low, Open Approach (ICD-10-PCS; principal; 2017-01-15)
PROC: 10907ZC Drainage of Amniotic Fluid, Therapeutic from Products of Conception, Via Natural or Artificial Opening (ICD-10-PCS; 2017-01-15)
DX: O62.1 Secondary uterine inertia (principal); O99.824 Streptococcus B carrier state complicating childbirth; Z3A.40 40 weeks gestation of pregnancy; Z37.0 Single live birth
CPT/HCPCS: 01967; 01968; 36415; 51703; 59025; 85014; 85018; 85027; 86850; 86900; 86901; A9270-GY; J0290; J0595; J1885; J2250; J2270; J2590; J2704; J2795; J3010; J7030; J7050; J7120